=== PATIENT | male | born 1945 | race Caucasian/White ===

== ENCOUNTER 2019-07-01 10:03 | Inpatient (IN) ==
--- NOTE | 2019-07-01 10:37 | EKG Report ---
Test Performed on : 07/01/2019 10:24:53 AM Test Reason : palpi Blood Pressure : / mmHG Vent. Rate : 084 BPM Atrial Rate : 084 BPM P-R Int : 142 ms QRS Dur : 102 ms QT Int : 398 ms P-R-T Axes : 028 -09 019 degrees QTc Int : 470 ms Normal sinus rhythm. Possible Left atrial enlargement Borderline ECG When compared with ECG of 14-JAN-2019 09:42, Previous ECG has undetermined rhythm, needs review Unconfirmed Result
[2019-07-01 10:43] LABS: BASO% 0.4 % (0.0-0.8); EOS% 1.5 % (0.0-10.0); HEMATOCRIT 45.1 % (42.0-52.0); HEMOGLOBIN 15.6 g/dL (14.0-18.0); IMM GRAN% 0.2 % (0.0-0.5); LYMPH# 1.65 X1000 (1.2-3.4); LYMPH% 19.4 % (20.5-51.1); MCH 29.7 PG (27-31); MCHC 34.6 g/dL (33-37); MCV 85.9 FL (81-99); MONO% 8.9 % (1.7-9.3); MPV 9.6 FL (7.4-10.4); NEUT# 5.93 X1000 (1.4-6.5); NEUT% 69.6 % (42.2-75.2); PLT 249 X1000 (130-400); RBC 5.25 XMIL (4.7-6.1); RDW 13.7 % (11.5-14.5); WBC 8.52 X1000 (4.8-10.8)
[2019-07-01 10:44] LABS: BASO# 0.03 X1000 (0.0-0.2); EOS# 0.13 X1000 (0.0-0.7); IMM GRAN# 0.02 X1000 (0.0-0.04); MONO# 0.76 X1000 (0.11-0.59)
--- NOTE | 2019-07-01 10:50 | Diag Imaging Result Doc PS360 ---
EXAM: CHEST-2 VIEWS HISTORY: SOB TECHNIQUE: Chest two views COMPARISON: 01/14/2019 FINDINGS: Interval development of a small to moderate-sized right pleural effusion. There is underlying atelectasis and there may be pneumonia as well. No cardiomegaly. No pulmonary edema. The left lung is well expanded and clear. IMPRESSION: Right pleural effusion and atelectasis and possibly underlying pneumonia. Electronically signed by Heriberto Rico 07/01/2019 10:47 AM
[2019-07-01 11:14] LABS: AGAP 14; ALB/GLOB RATIO 1.1; ALBUMIN 3.7 g/dL (3.5-5.0); ALKALINE PHOSPHATASE 95 U/L (32-122); BUN 18 mg/dL (8-22); CALCIUM 9.1 mg/dL (8.8-10.2); CHLORIDE 103 mmol/L (98-107); COSMO 281; CREATININE 0.9 mg/dL (0.7-1.2); ESTIMATED GFR > 60; GLUCOSE 134 mg/dL (70-104); GOT 16 U/L (10-34); GPT 9 U/L (10-44); POTASSIUM 3.4 mmol/L (3.5-5.1); SODIUM 139 mmol/L (136-145); TCO2 22 mmol/L (25-35); TOTAL BILIRUBIN 0.86 mg/dL (0.20-1.00); TOTAL PROTEIN 7.1 g/dL (6.3-8.3)
--- NOTE | 2019-07-01 12:15 | PROVIDER DOCUMENTATION ---
This chart was entered by Jacquie Nash Scribe, acting as scribe for Prince Benito MD. HPI-Cardiac General - General Chief Complaint: Palpitations Stated Complaint: A FIB Time Seen by Provider: 07/01/19 10:18 Source: patient Allergies/Adverse Reactions: Patient Allergies Allergy/AdvReac Type Severity Reaction Status Date / Time No Known Allergies Allergy Verified 06/09/15 01:53 Home Medications: Home Medication List Medication Instructions Recorded Confirmed Last Taken Type Amphetamine Salts [Adderall] 20 mg PO BID 06/09/15 07/01/19 07/01/19 History Apixaban [Eliquis] 5 mg PO BID 06/09/15 07/01/19 07/01/19 History Diltiazem HCl 120 mg PO DAILY 06/09/15 07/01/19 06/08/15 08:00 History Glucosamine/D3/Boswellia Analia 2 tab PO DAILY 06/09/15 07/01/19 06/08/15 08:00 History [Osteo Bi-Flex Caplet] Meclizine HCl [Antivert] 25 mg PO Q8H PRN PRN #30 tablet 06/09/15 07/01/19 Unknown Rx Meloxicam 7.5 mg PO DAILY 06/09/15 07/01/19 06/08/15 History Tadalafil [Cialis] 5 mg PO DAILY 06/09/15 07/01/19 06/08/15 History Tamsulosin [Flomax] 0.4 mg PO EVERY OTHER DAY 06/09/15 07/01/19 06/08/15 08:00 History Vitamin B Complex Vit C No.4 150 mg PO DAILY 06/09/15 07/01/19 06/08/15 08:00 History [Super B Complex] Meclizine [Antivert] 25 mg PO 3-4XDAY PRN PRN #30 tab 01/14/19 07/01/19 Unknown Rx Cephalexin [Keflex] 500 mg PO BID #10 cap 04/12/19 07/01/19 Unknown Rx - History of Present Illness-Cardiac Nature of Presenting Problem: 74yom presents to ED cc palpitations, SOB and wheezing since Monday that increases with activity. Pt reports he was seen by Dr. Quiros/PCP this morning and the Xray he took showed fluid on 1 lung so he sent pt to ED for further evaluation. Pt reports he sleeps on 2 pillows due to sleep apnea and narcoleptic sleep disorder. Pt denies N/V/D/F. Pt is on Eliquis and has hx of AFIB and HTN. Pt reports he is followed by Dr. Francois Stubbs/[employer] Super[employer]. Pt is nontoxic and no acute distress upon exam. Quality of Pain: reports: none Severity in ED: mild Onset/Duration: 4 days ago Timing: still present Context/Activities at Onset: reports: light activity Modifying Factors: worse with: other (activity) Palpitation Quality: irregular History of arrythmia: reports: A-Fib Associated Symptoms: reports: shortness of breath Similar Symptoms Previously?: Yes Recently Seen Here or By Another Healthcare Provider: Yes (was seen by Dr. Quiros/PCP this morning) Review of Systems - Adult - REVIEW OF SYSTEMS - ADULT Constitutional: reports: see HPI. denies: chills, fever, fatique Eyes: reports: no symptoms reported Ears, Nose, Mouth & Throat: reports: no symptoms reported Cardiovascular: reports: see HPI, palpitations. denies: chest pain Respiratory: reports: see HPI, shortness of breath, wheezing. denies: cough Gastrointestinal: reports: see HPI. denies: diarrhea, nausea, vomiting Genitourinary: reports: no symptoms reported Musculoskeletal: reports: no symptoms reported Integumentary: reports: no symptoms reported Neurological: reports: no symptoms reported Psychiatric: reports: no symptoms reported Endocrine: reports: no symptoms reported Hematologic/Lymphatic: reports: no symptoms reported Allergic/Immunologic: reports: no symptoms reported All Other Systems: Reviewed and Negative Past History - Adult - PAST MEDICAL HISTORY-ADULT Review of Records: reports: Nursing Assessment Review, Medications Reviewed, Social history reviewed & non-contributory. Major Childhood Illnesses: reports: denies history Cardiovascular: reports: A-Fib, HTN Respiratory: reports: denies history Gastrointestinal: reports: denies history Obstetrical/Gynecological: reports: denies history Genitourinary: reports: denies history Musculoskeletal: reports: denies history Neurological: reports: denies history Endocrine/Immune: reports: denies history Other Conditions: reports: denies history - PRIOR SURGERIES/PROCEDURES Surgical/Procedure History: reports: none - IMMUNIZATION STATUS Childhood Immunizations: See Nurse Assessment Flu Vaccine: See Nurse Assessment - FAMILY HISTORY Family History: reviewed, not pertinent - SOCIAL HISTORY Smoking: denies Physical Exam-General - PHYSICAL EXAM-ADULT Initial Vital Signs Reviewed: Yes - CONSTITUTIONAL General Appearance: appears well, alert, no apparent distress. negative: anxious, combative - EYES Eyes: PERRL/EOMI, pink conjunctivae. negative: photophobia - HEAD, EARS, NOSE, MOUTH & THROAT HENMT: normocephalic/atraumatic, moist mucous membranes. negative: angioedema - NECK Neck: non-tender, full range of motion, supple - RESPIRATORY Respiratory: chest non-tender, lungs clear, normal breath sounds. negative: wheezing - CARDIOVASCULAR Cardiovascular: normal peripheral pulses, regular rate, rhythm, no edema. negative: bradycardia, tachycardia - MUSCULOSKELETAL Extremity: normal inspection. negative: deformity - SKIN Integumentary: normal color. negative: ecchymosis, jaundice - PSYCHIATRIC Psych/Mental Status: normal mood/affect, oriented x 3. negative: anxious, disheveled Progress - PLAN OF CARE/RESULTS Progress/Plan/Lab Results: Vital Signs - 8 hr 07/01/19 10:06 Temperature 97.3 F L Pulse Rate 110 H Respiratory Rate 16 Blood Pressure 101/65 O2 Sat by Pulse Oximetry 97 Laboratory Results - last 24 hr 07/01/19 07/01/19 07/01/19 10:33 10:33 10:33 WBC 8.52 RBC 5.25 Hgb 15.6 Hct 45.1 MCV 85.9 MCH 29.7 MCHC 34.6 RDW Std Deviation 13.7 Plt Count 249 MPV 9.6 Immature Gran % (Auto) 0.2 Neut % (Auto) 69.6 Lymph % (Auto) 19.4 L Patrick % (Auto) 8.9 Eos % (Auto) 1.5 Baso % (Auto) 0.4 Immature Gran # (Auto) 0.02 Neut # (Auto) 5.93 Lymph # (Auto) 1.65 Patrick # (Auto) 0.76 H Eos # (Auto) 0.13 Baso # (Auto) 0.03 Sodium 139 Potassium 3.4 L Chloride 103 Carbon Dioxide 22 L Anion Gap 14 BUN 18 Creatinine 0.9 Estimated GFR/1.73 m2 > 60 BUN/Creatinine Ratio 20 Glucose 134 H Calculated Osmolality 281 Calcium 9.1 Total Bilirubin 0.86 AST 16 ALT 9 L Alkaline Phosphatase 95 Mrw-Z-Oddldolwvma Pept 665 H Total Protein 7.1 Albumin 3.7 Globulin 3.4 Albumin/Globulin Ratio 1.1 Orders Category Date Time Status CHEST-2 VIEWS [RAD] Stat Exams 07/01/19 10:27 Completed CBC WITH DIFF [HEME] Stat Lab 07/01/19 10:33 Completed COMPREHENSIVE METABOLIC PANEL [CHEM] Stat Lab 07/01/19 10:33 Completed PRO B-NATRIURETIC PEPTIDE Stat Lab 07/01/19 10:33 Completed EKG [EKG] Stat Ther 07/01/19 10:27 Draft Transfer/Admit Order [TRANSFER] Routine Transfer 07/01/19 12:04 Ordered Result Diagrams: 07/01/19 10:33 07/01/19 10:33 - EKG 1 Time of EKG reading by physician:: 10:24 EKG Read and Signed by:: Prince Benito EKG Interpretation (*Must complete 3 of following elements*): Abnormal (possible left atrial enlargement) Rate: 84 Rhythm: nsr CO Interval: normal ST Wave: normal - XRAY 1 XRAY: Bilateral XRAY Study: Chest Impression: See EMR Report (IMPRESSION: Right pleural effusion and atelectasis and possibly underlying pneumonia. Electronically signed by Heriberto Rico 07/01/2019 10:47 AM) - CONSULTS/PCP/HOSPITALIST Notification #1 *Consult/PCP/Hospitalist*: Dr. Burt Time Discussed: 11:52 Consult Disposition: Admit (accepted pt) Departure - Departure Date of Disposition Decision: 07/01/19 Time of Disposition Decision: 11:52 DIAGNOSIS: Pleural effusion, right, Atrial fib/flutter, transient Disposition: ADMITTED INPATIENT 09 Certified Medical Emergency: Emergent Condition: Stable Additional Freetext Instructions: ED Follow Up Instructions: You have been treated by a care provider in the Emergency Department. These instructions are being provided to you so you can have an understanding of how to care for yourself upon discharge. Upon discharge from the Emergency Department, you are responsible for making arrangements for follow-up care by a physician of your choice. Take all prescribed medications as directed. Return to the Emergency Department immediately for any new or worsening sym ptoms. You may call the Physician Referral phone number at [phone] to obtain a list of Physicians who are taking new patients. Referrals and Follow-Ups: Martine Quiros MD [Primary Care Provider] - - Critical Care Note This patient required my direct & personal management of CC.: No Attestation - Physician/ TOBY Attestation Patient care was provided by Advanced Practice Provider:: No The physician spent face to face time with patient:: Yes Advanced Practice Provider documentation review:: Supervising physician onsite and consulted in the evaluation and care of this patient. The physician did have a face to face encounter with the patient. This chart was documented by the indicated scribe, (Jacquie Nash Scribe) and accurately reflects the services I performed and decisions made by me, Prince Benito MD, as attested by the provider's signature.
[2019-07-01] MEDS ORDERED: ANTIVERT PO PRN (13:40)
[2019-07-01] MEDS ORDERED: ZOFRAN IV PRN (13:40)
[2019-07-01] MEDS ORDERED: TYLENOL PO PRN (13:40)
--- NOTE | 2019-07-01 14:05 | HISTORY AND PHYSICAL ---
PRIMARY CARE PHYSICIAN: Dr. Martine Quiros. FORESTRY TECHNICAL OFFICER: Dr. Francois Stubbs. CHIEF COMPLAINT: Palpitations, shortness of breath and wheezing. HISTORY OF PRESENTING ILLNESS: This is a 74-year-old male who presents to [facility] after he was seen by his primary care physician this morning, and while there, they took a chest x-ray that showed some fluid on his lungs, so they sent him to the emergency room for evaluation. The patient states that he has been having shortness of breath and wheezing since Monday that worsens with activity. He has also noted some palpitations and has a history of atrial fibrillation. He states that he does have 2 pillow orthopnea due to his sleep apnea and narcoleptic sleep disorder. His workup showed a chest x-ray with a right pleural effusion and atelectasis and possibly underlying pneumonia. Laboratory data was fairly unremarkable. His heart rate was 110 when he arrived. We did an EKG that showed normal sinus rhythm at 84. So, he will be admitted for further evaluation and treatment. PAST MEDICAL HISTORY: Atrial fibrillation, hypertension, and obstructive sleep apnea. PAST SURGICAL HISTORY: Back surgery x3, appendectomy and hemorrhoidectomy. FAMILY HISTORY: Reviewed and noncontributory. SOCIAL HISTORY: He currently lives with family. He is a former smoker. Denies any alcohol or illicit drug use. ALLERGIES: He has no known drug allergies. HOME MEDICATIONS: We will hold his Adderall 20 mg p.o. b.i.d., continue his Eliquis 5 mg p.o. b.i.d., diltiazem 120 mg p.o. daily, Osteo Bi-Flex 2 tablets p.o. daily, meclizine 25 mg p.o. q.8 hours p.r.n., meloxicam 7.5 mg p.o. daily. We will hold Cialis 5 mg p.o. daily, Flomax 0.4 mg p.o. every other day, and vitamin B complex 150 mg p.o. daily. LABORATORY DATA: Showed a white blood cell count of 8.52, hemoglobin 15.6, hematocrit 45.1, platelets 249,000. Sodium 139, potassium 3.4, chloride 103, CO2 22, BUN of 18, creatinine 0.9, glucose 134. ProBNP of 665. Chest x-ray showed a right pleural effusion and atelectasis and possibly underlying pneumonia. EKG showed normal sinus rhythm at 84. REVIEW OF SYSTEMS: He denied any fever, chills, blurred vision, dizziness. He had some palpitations but denied chest pain. He had shortness of breath and wheezing. Denied any abdominal pain, constipation, diarrhea, burning or hurting with urination. PHYSICAL EXAMINATION: VITAL SIGNS: On arrival, he had a temperature of 97.3 degrees, pulse 110, respirations 16, blood pressure 101/65, saturating 97% on room air. GENERAL: This is a 74-year-old male who is lying in the bed and answers questions appropriately. HEENT: Normocephalic, atraumatic. Normal ENT inspection. Oropharynx and nares are clear. EYES: Pupils are equal, round, and reactive to light and accommodation. Extraocular movements are intact. NECK: Normal inspection normal range of motion. LUNGS: With some decreased breath sounds to the bilateral bases. Equal lung expansion. Chest wall movement noted. HEART: Regular rate and rhythm. No murmurs, rubs, or gallops. ABDOMEN: Soft, nontender, nondistended. Bowel sounds are present x4 quadrants. MUSCULOSKELETAL: He has 5/5 strength x4 extremities. NEUROLOGICAL: The cranial nerves 2-12 appear grossly intact. ASSESSMENT: 1. Right pleural effusion. 2. Possible right pneumonia. 3. Hypertension. 4. Palpitations with history of atrial fibrillation on current anticoagulation. PLAN: He will be admitted to the medical unit, placed on telemetry, O2 per protocol, healthy heart diet. We will check an echocardiogram. Place him on Lasix 40 mg IV q.12, continue home medications as previously identified. Place him on potassium 40 mEq p.o. daily and will recheck a CBC and BMP in the a.m. Further orders after seen by attending. Dictated by CHIQUIS Carroll for Gurmeet Burt MD cc: MD Jil Gonzalez CRNP Raphael K. Quansah, MD
[2019-07-01] MEDS: LASIX IV SCH (16:04)
--- NOTE | 2019-07-01 17:39 | HISTORY AND PHYSICAL ---
ADDENDUM REPORT: This morning I have seen and examined Mr. Rogers. The and the son were at the bedside at the time of the encounter. Mr. Rogers comes in because of progressively worsening shortness of breath for the past week or so. He went to see his PCP and was found to have elevated pulse, so he was advised to come to the emergency room where he was found to have a heart rate of about 113, 110. Occasionally it becomes very atrial fibrillation and then it turns back to sinus. PHYSICAL EXAMINATION: VITAL SIGNS: Blood pressure is 131/66, pulse is 83, respirations 20, temperature 97.4 degrees. NECK: Supple. I did not see any JVD. CHEST: Air entry was bilaterally reduced, more so to the right posterior lung. There is some dullness to percussion. CARDIOVASCULAR: Regular. No murmurs. ABDOMEN: Soft. EXTREMITIES: No pedal edema. CENTRAL NERVOUS SYSTEM: Patient is awake, alert, and oriented. LABORATORY DATA: Has also been reviewed. The patient's proB is up to 665; a baseline in January was just 378. A chest x-ray this morning seems to suggest a right pleural effusion and atelectasis, possible underlying pneumonia. ASSESSMENT AND PLAN: 1. Dyspnea on exertion on presentation, presumably related to right lower lobe consolidation concerning for pneumonia versus mass. There seems also to be some fluid there. X-ray was not extremely detailed enough. We are going to get a CT scan to have a better image of what we are looking at. 2. Possible congestive heart failure with preserved ejection fraction. 3. History of obstructive sleep apnea. 4. Paroxysmal atrial fibrillation, currently rate and rhythm controlled. Please refer to the details of the History and Physical, which has been dictated by the nurse practitioner in the chart. cc: Gurmeet Burt MD MTDD
[2019-07-01 17:59] LABS: INR 1.39; PROTIME 17.3 Seconds (11.0-16.0)
[2019-07-01 18:00] LABS: PTT 40.8 Seconds (22.3-41.8)
--- NOTE | 2019-07-01 19:37 | CARDIOLOGY CONSULTATION ---
DATE: 07/01/2019 CONSULTATION REQUESTED BY: Hospitalist service. REASON: Possible CHF. HISTORY: Mr. Rogers is a 71-year-old male who was in his usual state of health until just few days ago when he started having a discomfort on the substernal area of the chest when turning on his left side at night, and getting better when turning on his right side. He also noted increasing dyspnea. This was unusual. The patient tells me that he just got about 4 days ago, on 06/28/2019. The patient had been doing well. He just went to the ER today after seeing his primary doctor, and the chest x-ray shows right pleural effusion, atelectasis, possibly underlying pneumonia. There is no cardiomegaly. There is no pulmonary edema. A proBNP level is only minimally elevated at 665 g/mL. Normal or upper normal is 450. BUN and creatinine are normal. His EKG done in the ER is normal. His telemetry right now is normal. The patient has been admitted for further evaluation. PAST HISTORY: Positive for paroxysmal atrial fibrillation. He has been diagnosed with hypertension. He also has some obstructive sleep apnea. SURGICAL HISTORY: Previous appendectomy, hemorrhoidectomy. He has had back surgery. FAMILY HISTORY: Several siblings of cancer. One brother of heart disease. Mother young. He is the youngest of 10 children. SOCIAL HISTORY: He retired from [employer] after working 34 years. He retired in 1999. He has been twice before. He just got 4 days ago. He has 3 children from his first and 1 from the second . He quit smoking 40 years ago. Not a drinker. ALLERGIES: He is not allergic to any drug or substance that he is aware of. HOME MEDICATIONS: Include: 1. Amphetamine. 2. Adderall 20 mg twice a day. 3. Apixaban 5 mg twice a day. 4. Keflex 500 twice a day. 5. Diltiazem 120 daily. 6. Glucosamine 2 tablets daily. 7. Meclizine 25 every 8 hours. 8. Meloxicam 7.5 daily. 9. Cialis 5 mg daily. 10. Flomax 0.4 mg every other day. 11. Vitamin B complex 150 daily. REVIEW OF SYSTEMS: Up until the onset of symptoms, he was doing fine. Multiple systems were checked. They were negative, including GI, , skeletal, muscular, hearing, vision, skin, immunological, hematological, pulmonary, cardiac, etc. PHYSICAL EXAMINATION: Vital Signs: Blood pressure 131/66, temperature 97.4 degrees, pulse 83, respirations 20. General: The patient is awake, alert, oriented, in no distress. HEENT: Unremarkable. I do not see jugular venous distention. Chest: Diminished breath sounds in the right base with dullness to percussion. Heart: Sounds are regular and rhythmic. I do not hear a gallop or murmur. Abdomen: Nontender, soft. No masses, no hepatomegaly. Extremities: Good pulses. No peripheral edema. Neurological: Nonfocal. Moves 4 extremities. IMPRESSION: 1. Patient who presents with increasing dyspnea, abnormal chest x-ray, suggesting atelectasis and effusion. 2. History of paroxysmal atrial fibrillation. 3. Former smoker. 4. Strong family history of cancer. 5. History of hypertension. 6. History of obstructive sleep apnea. RECOMMENDATIONS: At this time, I think we need to do a CT of the chest with contrast, looking for a mass. I strongly suspect this patient may have cancer. We will get a CEA, C- reactive protein, and sedimentation rate. I will review the echocardiogram that was done earlier on today. We may want to consult Pulmonary for bronchoscopy or possibly pleural biopsy. His presentation and the preliminary laboratory studies do not support Congestive heart failure as the chief underlying problem. Further advice will be forthcoming. Thank you for asking us to participate in his evaluation. cc: MD JULIETA Calvo
[2019-07-01] MEDS: ELIQUIS PO SCH (20:43)
[2019-07-01] MEDS ORDERED: FLOMAX PO SCH (21:00)
[2019-07-01] MEDS: FLOMAX PO SCH (21:17)
[2019-07-02] MEDS: LASIX IV SCH ×2 (03:47→09:43)
[2019-07-02] MEDS ORDERED: VANCOMYCIN IV PER PHARMACY MISC SCH (06:00)
[2019-07-02] MEDS: MAXIPIME 1 GM in NS 50 ML IV SCH ×2 (06:17→19:44)
[2019-07-02 06:47] LABS: BASO# 0.03 X1000 (0.0-0.2); BASO% 0.4 % (0.0-0.8); EOS# 0.16 X1000 (0.0-0.7); EOS% 1.9 % (0.0-10.0); HEMATOCRIT 44.8 % (42.0-52.0); HEMOGLOBIN 15.1 g/dL (14.0-18.0); IMM GRAN# 0.02 X1000 (0.0-0.04); IMM GRAN% 0.2 % (0.0-0.5); LYMPH# 1.63 X1000 (1.2-3.4); LYMPH% 19.5 % (20.5-51.1); MCH 29.2 PG (27-31); MCHC 33.7 g/dL (33-37); MCV 86.7 FL (81-99); MONO# 0.73 X1000 (0.11-0.59); MONO% 8.7 % (1.7-9.3); MPV 9.8 FL (7.4-10.4); NEUT# 5.78 X1000 (1.4-6.5); NEUT% 69.3 % (42.2-75.2); PLT 238 X1000 (130-400); RBC 5.17 XMIL (4.7-6.1); RDW 13.8 % (11.5-14.5); WBC 8.35 X1000 (4.8-10.8)
--- NOTE | 2019-07-02 07:23 | Diag Imaging Result Doc PS360 ---
EXAM: CT THORAX W/CONTRAST 07/01/2019 HISTORY: right lung base fluid ? mass TECHNIQUE: This exam was performed using automated exposure control, adjustment of mA or kV according to patient size, and/or use of iterative reconstruction technique. COMMENT: There is a large pleural effusion on the right. This was not present on 11/11/2015. Some of the fluid may be loculated. There is no fluid on the left side. No significant pericardial fluid is present. There is a enlarged aorticopulmonary window node measuring over 2 cm in long axis. There is also some apparent right hilar adenopathy. There is a calcified node in the subcarina and some calcified right hilar nodes. There are no significant abnormalities in the left lung. There is apical pleural fibrosis bilaterally and considerable compressive atelectasis in the right lower lobe and middle lobe. There is a area of relative nodularity near the hilum in the atelectatic portion of the right lower lobe. The possibility of an underlying mass cannot be excluded. There is a rounded pleural-based nodule in the lateral right middle lobe measuring 17 mm in diameter. This was not present previously. There are some pleural calcifications bilaterally. There is no evidence of acute bony abnormality. IMPRESSION: Large right pleural effusion. Compressive atelectasis. Nodular pulmonary opacity in the lateral right middle lobe and questionable right lower lobe mass of uncertain significance. The possibility of malignancy cannot be excluded and further evaluation is recommended. Electronically signed by Ihsan Caballero 07/02/2019 7:21 AM
[2019-07-02 07:25] LABS: AGAP 13; BUN 16 mg/dL (8-22); CALCIUM 9.3 mg/dL (8.8-10.2); CHLORIDE 99 mmol/L (98-107); COSMO 276; CREATININE 0.9 mg/dL (0.7-1.2); ESTIMATED GFR > 60; GLUCOSE 109 mg/dL (70-104); SODIUM 137 mmol/L (136-145); TCO2 25 mmol/L (25-35)
[2019-07-02] MEDS ORDERED: VANCOMYCIN 2,500 MG in NS 500 ML IV ONE (08:00)
--- NOTE | 2019-07-02 08:40 | PROVIDER PROGRESS NOTE ---
Progress Note Additional Pulmonary Note: We will likely consider repeat imaging after thoracentesis, Which in turn to be scheduled on 07/04 (Sarita held).
[2019-07-02] MEDS ORDERED: MOBIC PO SCH (09:00)
[2019-07-02] MEDS ORDERED: KLOR-CON PO SCH (09:00)
[2019-07-02] MEDS: CARDIZEM CD PO SCH (09:43)
[2019-07-02] MEDS: VICON-C PO SCH (09:43)
[2019-07-02] MEDS: GLUCOSAMINE 500 MG/CHONDROITIN 400 MG PO SCH (09:43)
--- NOTE | 2019-07-02 10:28 | PROGRESS NOTE ---
DATE: 07/02/2019 INTERVAL HISTORY: No acute events overnight. He became sinus rhythm. He denies any chest pain. His shortness of breath is at baseline. He states he has been having some shortness of breath and dry cough for almost a week to 10 days. We discussed about CT scan finding. We discussed about possibility of pneumonia versus lung cancer versus other etiologies. His is at bedside. VITAL SIGNS: Temperature 97.8 degrees, pulse 78, respiratory rate 18, blood pressure 105/65, saturating 97% on room air. PHYSICAL EXAMINATION: General: Does not appear in acute distress. Oral cavity is moist. He had decreased air entry with inspiratory crackles and egophony on the right infrascapular region. Adequate air entry without wheeze, rhonchi, crackles on left hemithorax. S1, S2 normal. Regular. No murmur, rub, or gallop. Abdomen: Soft, nontender. No lower extremity edema. He is alert and oriented x3. LABS: Suggestive of no leukocytosis, normal hemoglobin. Hypokalemia which I am repleting. Microbiology is unremarkable. CT scan of the chest yesterday had detected large right pleural effusion, compressive atelectasis, nodular pulmonary opacity in the lateral right middle lobe and questionable right lower lobe mass of uncertain significance. ASSESSMENT AND PLAN: 1. Right pleural effusion. Differential includes parapneumonic effusion versus malignant pleural effusion versus other. He denies known history of coronary artery disease or congestive heart failure. His last dose of Eliquis was 07/01/2019 around 8 p.m. Ultrasound thoracentesis is ordered and I will await pleural fluid studies. Meanwhile, continue intravenous antibiotics. Follow up formal echocardiogram report. Continue intravenous Lasix as well. Pulmonology on board for further workup in the future. 2. Atrial fibrillation with rapid ventricular rate with paroxysmal atrial fibrillation. Continue home diltiazem. Hold home Eliquis. 3. Others. Continue tamsulosin for BPH; meclizine for chronic dizziness and vertigo. DISPOSITION: Awaiting ultrasound thoracenteses, likely to be done on 07/02/2019 late evening versus July 03. Appreciate Radiology recommendation and pleural fluid analysis. Plan of care discussed with the patient and his at bedside. Noticeably, patient does have history of about 15 to 20 pack year smoking history. cc: Jorge Khan MD
[2019-07-02] MEDS: POTASSIUM CHLORIDE 20 MEQ/SWI 20 MEQ/100 ML IVPB IV SCH ×2 (13:07→16:05)
--- NOTE | 2019-07-02 17:25 | ECHO REPORT ---
ORDER DATE: 07/01/2019 INTERPRETING PHYSICIAN: Dr. Burden CLINICAL INDICATIONS: Right pleural effusion, paroxysmal atrial fibrillation, question of CHF. M-MODE MEASUREMENTS: Left ventricle end diastole: 4.7 cm. Left ventricle end systole: 3.3 cm. Posterior wall: 0.9 cm. Interventricular septum: 0.9 cm. Left atrium: 4.2 cm. Aortic root: 3.6 cm. SUMMARY OF 2-DIMENSIONAL IMAGIN. The left ventricular function is normal. Ejection fraction is estimated at 57%. There is no wall motion abnormality. 2. The aortic valve has three cusps. Color flow mapping indicates a mild degree of regurgitation. 3. Mitral valve looks normal. Color flow mapping unremarkable. 4. Pulsed wave Doppler of mitral inflow is normal. 5. Tissue Doppler of septal and lateral mitral annulus averages 6 cm. 6. There is no diastolic dysfunction. 7. There is mild to moderate degree of tricuspid regurgitation with pulmonary pressure estimated at 25 mmHg. The pulmonic valve is normal. Color flow mapping unremarkable. 8. There is no pericardial effusion, mass, and no thrombus. 9. Right-sided chambers are normal. CONCLUSIONS: In summary, this echocardiographic study is quite unremarkable. It shows: 1. Normal left ventricular systolic function. 2. Mild degree of aortic regurgitation. 3. Mild to moderate tricuspid regurgitation with pulmonary pressure of 25 mmHg. 4. Normal diastolic function. Clinical correlation is recommended. cc: MD Jil Calvo CRNP
[2019-07-02] MEDS ORDERED: FLOMAX PO SCH (21:00)
--- NOTE | 2019-07-02 21:11 | CONSULTATION ---
DATE OF CONSULTATION: 07/02/2019 REQUESTING PROVIDER: Dr. Gurmeet Burt. REASON FOR CONSULTATION: Large right-sided pleural effusion with atelectasis. HISTORY OF PRESENT ILLNESS: This is a 74-year-old, male, with medical history of atrial fibrillation, hypertension, obstructive sleep apnea, narcoleptic sleep disorder and arthritis. He apparently went to see his primary care physician, Dr. Quiros, yesterday morning, and a chest x-ray in the office showed right-sided pleural effusion, so he was sent to the ER for further evaluation. He was put on antibiotics including cefepime and vancomycin, and Lasix since admission. The patient currently is lying in bed with no acute distress. He is on room air. The patient's is at the bedside. The patient reported he had some palpitations and shortness of breath which are worse with activities, and audible wheezing before admission, but he has no cough. No fever, chills, chest pain, diarrhea, constipation, nausea, vomiting, urination discomfort, or noticeable recent weight change. He reported he has had some chronic nasal congestion for over 2 years, and postnasal drip, and because of nasal congestion, he cannot tolerate CPAP as he used to. So, he has not been on any CPAP at bedtime for about 2 years. He sleeps on 2 pillows and he usually sleeps to his sides. He reported that although he is not using the CPAP machine, but he generally sleeps pretty good. His reported he has really loud snoring when he sleeps with some witnessed apnea at times. He reports no pedal edema. PAST MEDICAL/SURGICAL HISTORY: 1. Atrial fibrillation. Follow up outpatient by Dr. Stubbs. 2. Hypertension. 3. Obstructive sleep apnea. The patient has not used his CPAP for over 2 years, because of his nasal congestion which is not relieved by Flonax. 4. Narcoleptic sleep disorder. 5. Arthritis. 6. Status post back surgery x3. 7. Appendectomy. 8. hemorrhoidectomy. SOCIAL HISTORY: Patient lives at home with his . He is a former smoker with about 15-20 pack years of smoking history and he quit over 40 years ago. He has no history of alcohol or illicit drug use. He has no pets at home. FAMILY HISTORY: Significant for cancer. ALLERGIES: No known drug allergies. REVIEW OF SYSTEMS: A 10-point review of systems was conducted and the pertinent is listed within the HPI. Otherwise noncontributory. PHYSICAL EXAMINATION: Vital Signs: Temperature 97.8 degrees, blood pressure 105/65, pulse 73, respiratory rate 18, oxygen saturation 97% on room air. General: Lying in bed with no acute distress noted. HEENT: Atraumatic, normocephalic. Trachea midline. Mucosa pink and moist. No nasal polyps noted. Respiratory: Even and unlabored, symmetrical excursion. Auscultation revealed diminished breathing sounds in the right side of the lung with early inspiratory crackles in the right middle lung zone and left lower lung zone. Cardiovascular: Regular rate and rhythm. Gastrointestinal: Soft, nondistended, nontender. Bowel sounds normoactive in all 4 quadrants. Extremities: No pedal edema. No cyanosis. No clubbing. Dorsalis pedis 1+ bilaterally. Neurologic: Alert and oriented x3. Speech fluent. Follows commands. LABORATORY DATA: White blood cell 8.35, hemoglobin 15.1, hematocrit 44.8, platelet 239,000. Sodium 137, potassium 3.0, chloride 99, carbon dioxide 25, BUN 16, creatinine 0.9, glucose 109. IMAGING DATA: CT of thorax with contrast on 07/01/2019, revealed a large right pleural effusion, compressive atelectasis, nodular pulmonary opacity in the lateral right middle lobe, and questionable right lower lobe mass of uncertain significance. ASSESSMENT: This is a 74-year-old, male, with a medical history of atrial fibrillation, hypertension, obstructive sleep apnea, narcoleptic sleep disorder, and arthritis. He has been admitted to the medical floor since yesterday, with large right-sided large right pleural effusion and possible right pneumonia. 1. Large right pleural effusion with compressive atelectasis. 2. Right middle lobe rounded, pleural-based nodule measuring 17 mm in diameter, and questionable right lower lobe mass. 3. Possible right pneumonia PLAN: 1. The patient is on Eliquis for atrial fibrillation. His last dosage was given on 07/01/2019 at 2042, and has been held since then. Currently, we are planning ultrasound thoracentesis on 07/04/2019, morning. I explained the reasoning of pending thoracentesis to patient and his . They both show understanding and agree with our plan. 2. Continue antibiotic and diuretics. 3. Consider repeat imaging after thoracentesis and antibiotic therapy; decide from there to pursue any further procedure, such as bronchoscopy or scan, such as outpatient PET scan or not. 4. Follow up with procalcitonin and pleural fluid profile. 5. Further recommendations pending hospital course. Thank you for the courtesy of this consult. Dictated by CHIQUIS Ramirez for Vernon Sevilla MD cc: CHIQUIS Ramirez MD [facility]
[2019-07-03] MEDS: VANCOMYCIN 2,000 MG in NS 500 ML IV SCH ×2 (03:43→21:29)
[2019-07-03] MEDS: MAXIPIME 1 GM in NS 50 ML IV SCH ×2 (05:00→17:05)
[2019-07-03 07:58] LABS: AGAP 13; BUN 18 mg/dL (8-22); CALCIUM 8.7 mg/dL (8.8-10.2); CHLORIDE 106 mmol/L (98-107); COSMO 286; CREATININE 0.7 mg/dL (0.7-1.2); ESTIMATED GFR > 60; GLUCOSE 108 mg/dL (70-104); POTASSIUM 3.4 mmol/L (3.5-5.1); SODIUM 142 mmol/L (136-145); TCO2 23 mmol/L (25-35)
[2019-07-03] MEDS ORDERED: FLOMAX PO SCH (09:00)
[2019-07-03] MEDS: LASIX IV SCH (09:17)
[2019-07-03] MEDS: CARDIZEM CD PO SCH (09:17)
[2019-07-03] MEDS: GLUCOSAMINE 500 MG/CHONDROITIN 400 MG PO SCH (09:17)
[2019-07-03] MEDS: VICON-C PO SCH (09:17)
[2019-07-03] MEDS: KLOR-CON PO SCH ×2 (14:29→17:44)
[2019-07-03] MEDS ORDERED: MAGNESIUM SULFATE 2 GM/S.W.I. 2 GM/50 ML IVPB IV ONE (17:15)
--- NOTE | 2019-07-03 17:55 | PROGRESS NOTE ---
DATE: 07/03/2019 INTERVAL HISTORY: No acute events overnight. His thoracentesis was postponed because he was on Eliquis and it is planned to be done tomorrow. The patient does not appear in any acute distress. He thinks his shortness of breath is better. He was in significant distress when he was admitted though, and especially when he visited his regular doctor, but he is feeling better now. OBJECTIVE: vital signs: Currently, temperature of 98.1 degrees, pulse 100, respiratory rate 20, blood pressure 112/60, saturation is 97% on room air. General: Does not appear in any acute distress. Oral cavity is moist. Air entry bilaterally equal. No wheeze, rhonchi, crackles. S1, S2 normal. No murmur, rub, or gallop. He does have significantly decreased air entry in right infrascapular region with some inspiratory crackles and decreased vocal resonance. Abdomen: Soft, nontender. No lower extremity edema. He is alert and oriented x3. LABORATORY: Suggestive of normal CBC. His BMP has a potassium of 3.4, which is currently being repleted. I will also give him 2 g of magnesium and will have magnesium level drawn tomorrow. ASSESSMENT AND PLAN: 1. Right pleural effusion. Differential includes parapneumonic effusion versus malignant pleural effusion versus other etiologies. His echocardiogram is largely unremarkable. He does not have a history of coronary artery disease. Continue to hold Eliquis, intravenous Lasix, and follow up thoracentesis on July 04. Based on that, Pulmonology team would plan repeat CT scan of his chest and possible need for bronchoscopy. 2. Atrial fibrillation with rapid ventricular rate and paroxysmal nature of it. Continue home diltiazem. Hold Eliquis for now. 3. Hypokalemia, which is currently being repleted. I will give him magnesium. Will follow up with potassium and magnesium tomorrow. This is likely related to intravenous Lasix use. 4. Others. Continue tamsulosin for BPH. Continue intravenous antibiotics for suspected parapneumonic effusion until we get the thoracenteses done. 5. Plan of care discussed with the patient and his questions have been answered. cc: Jorge Khan MD
[2019-07-03] MEDS: FLOMAX PO SCH (21:30)
[2019-07-04] MEDS: MAXIPIME 1 GM in NS 50 ML IV SCH (05:47)
[2019-07-04 07:51] LABS: AGAP 11; BUN 17 mg/dL (8-22); CHLORIDE 108 mmol/L (98-107); COSMO 287; CREATININE 0.9 mg/dL (0.7-1.2); ESTIMATED GFR > 60; GLUCOSE 108 mg/dL (70-104); POTASSIUM 4.2 mmol/L (3.5-5.1); SODIUM 143 mmol/L (136-145); TCO2 24 mmol/L (25-35)
--- NOTE | 2019-07-04 09:44 | Diag Imaging Result Doc PS360 ---
US THORACENTESIS W/IMAGE GUIDE - 07/04/2019 INDICATION: large right pleural effusion TECHNIQUE: The risks and benefits of the procedure were discussed with the patient. All questions were answered. Written and verbal informed consent was obtained. Overlying skin was prepped and draped in sterile fashion. Anesthesia was achieved with injection of 10 cc of 1% lidocaine. COMPARISON: Chest CT 07/01/2019 FINDINGS: The large right pleural effusion was successfully drained. 2 L was removed. There was no hemorrhage or evidence of propagation. However at the end of the procedure, the patient was becoming lightheaded. The report was called to the patient's nurse and the patient was sent back to the floor. IMPRESSION: Successful ultrasound-guided right thoracentesis. No competition from the procedure. However the patient became lightheaded and was returned back to the inpatient unit. Electronically signed by Brant Vallejo 07/04/2019 9:41 AM
--- NOTE | 2019-07-04 10:15 | Diag Imaging Result Doc PS360 ---
CHEST-2 VIEWS - 07/04/2019 INDICATION: post thoracentesis COMPARISON: 07/01/2019 FINDINGS: There is a trace residual right pleural effusion. No pneumothorax. There is decrease in the atelectasis in the right lung base. The left lung remains clear. Heart size remains top normal. IMPRESSION: Significant decrease in the right pleural effusion. No complication from thoracentesis. Electronically signed by Brant Vallejo 07/04/2019 10:12 AM
[2019-07-04 10:23] LABS: BODY FLUID SOURCE PLEURAL FLUID; SPECIMEN PLEURAL FLUID
[2019-07-04] MEDS: GLUCOSAMINE 500 MG/CHONDROITIN 400 MG PO SCH (10:23)
[2019-07-04] MEDS: CARDIZEM CD PO SCH (10:24)
[2019-07-04] MEDS: VICON-C PO SCH (10:24)
[2019-07-04] MEDS: ELIQUIS PO SCH (10:24)
[2019-07-04] MEDS: LASIX IV SCH (10:24)
[2019-07-04 10:42] LABS: GLUCOSE BODY FLUID 94 mg/dL
[2019-07-04 10:43] LABS: AMYLASE BODY FLUID 21 U/L; TOTAL PROT BODY FLUID 4.8 g/dL
[2019-07-04 11:06] LABS: LDH BODY FLUID 202 U/L
[2019-07-04 11:54] LABS: POLYS 8 %; WBC BF 129 /cumm
[2019-07-04 11:55] LABS: MONOS 92 %
[2019-07-04 13:20] LABS: ALBUMIN 3.4 g/dL (3.5-5.0); TOTAL PROTEIN 7.1 g/dL (6.3-8.3)
--- NOTE | 2019-07-04 13:54 | Diag Imaging Result Doc PS360 ---
EXAM: CT THORAX W/O CONTRAST HISTORY: SOB TECHNIQUE: CT chest without contrast COMPARISON: 07/01/2019 FINDINGS: Interval decrease in the right pleural effusion. This now measures only 3.7 cm posteriorly and inferiorly in the midline where as previously it measured over 10 cm. No left-sided effusion. No cardiomegaly. The calcified mediastinal and hilar lymph nodes with scattered granuloma. Lobulated right lower lobe 1.8 x 3.6 cm mass is better seen due to partial reexpansion of the right lower lobe. Tiny nodules laterally in the right lung are unchanged. Limited images through the upper abdomen reveal stones in the gallbladder. IMPRESSION: 1.Interval decrease in the right pleural fluid 2.Right lower lobe mass is easier to see 3.No other interval change. This exam was performed using automated exposure control, adjustment of mA or kV according to patient size, and/or use of iterative reconstruction technique. Electronically signed by Heriberto Rico 07/04/2019 1:51 PM
[2019-07-04] MEDS: VANCOMYCIN 2,000 MG in NS 500 ML IV SCH (17:23)
--- NOTE | 2019-07-04 20:30 | PROGRESS NOTE ---
DATE: 07/04/2019 INTERVAL HISTORY: Mr. Rogers underwent thoracenteses today with 2 L of fluid removal. Unfortunately, immediately after thoracentesis, he received a dose of Eliquis. There was a glitch in the computer system and his hold order on Eliquis got discontinued automatically, and I was not informed about resuming the Eliquis because of that. In any case, he tolerated the thoracentesis well. His post-thoracentesis CT scan detected right-sided lung nodules. The pleural fluid analysis suggests lymphocytic predominance with exudative nature with high protein and LDH. SUBJECTIVE: The patient and his had several questions regarding thoracenteses, possible next plan of action. I answered them to best of my knowledge. They are also awaiting to discuss these questions with the automotive manager before going home. VITALS: Currently, temperature 98.6 degrees, pulse 89, respiratory rate 22, blood pressure 126/66, saturating 98% on room air. OBJECTIVE: General: Does not appear in any acute distress. Oral cavity is moist. Air entry bilaterally equal. No wheeze, rhonchi, crackles. He does have decreased air entry in right infrascapular region. S1, S2 normal. No murmur, rub, gallop. Abdomen: Soft, nontender. No lower extremity edema. LABORATORY: Essentially suggest normal electrolytes. Pleural fluid analysis had WBC of 129, total protein of 4.8, and LDH of 202. Pleural fluid Gram stain had a few white cells, but no bacteria. Final culture is pending. IMAGING: Chest CT post-thoracentesis had interval decrease in right pleural fluid, right lower lobe mass, and no other interval change. ASSESSMENT AND PLAN: 1. Right pleural exudative effusion with lymphocytic predominance with presence of right lung nodules suspicious for malignancy versus other etiologies. The final cytology result is pending. I will appreciate Pulmonology about possible need for bronchoscopy outpatient. 2. Paroxysmal atrial fibrillation. Continue home diltiazem. Continue to hold all anticoagulants for now. 3. His hypokalemia was repleted. 4. I will stop the antibiotics since his procalcitonin was unremarkable. He is now status post almost 4 days of IV antibiotics. Pleural fluid, though has high white blood cells, is lymphocytic. There is no organized consolidation. I will keep him on oral Lasix. 5. Disposition. The patient will be discharged to home after he has seen his automotive manager and have next course of action tomorrow. cc: Jorge Khan MD
[2019-07-04] MEDS: LIDODERM TOP SCH (22:10)
[2019-07-05] MEDS ORDERED: LASIX PO SCH (06:00)
--- NOTE | 2019-07-05 07:03 | Diag Imaging Result Doc PS360 ---
EXAM: CHEST-PORTABLE HISTORY: Follow up right pleural effusion TECHNIQUE: Chest single view COMPARISON: 07/04/2019 FINDINGS: Interval decrease in the size of the right pleural effusion. No pneumothorax. The heart is mildly prominent. Atelectasis and/or infiltrates in the lower right lung. These are less pronounced. IMPRESSION: Mild interval improvement. Electronically signed by Heriberto Rico 07/05/2019 7:02 AM
[2019-07-05 07:40] LABS: AGAP 13; BUN 16 mg/dL (8-22); CALCIUM 8.9 mg/dL (8.8-10.2); CHLORIDE 106 mmol/L (98-107); COSMO 285; CREATININE 0.7 mg/dL (0.7-1.2); ESTIMATED GFR > 60; GLUCOSE 110 mg/dL (70-104); POTASSIUM 3.7 mmol/L (3.5-5.1); SODIUM 142 mmol/L (136-145); TCO2 23 mmol/L (25-35)
[2019-07-05 08:07] VITALS: BP 123/57
--- NOTE | 2019-07-05 09:26 | PROVIDER PROGRESS NOTE ---
Progress Note Pulmonary Additional Note: CT images after thoracentesis were reviewed and the best biopsy approach maybe CT guided biopsy. I called the radiologist to discuss and waiting on a call back. I will discuss with patient and family.
[2019-07-05] MEDS ORDERED: LOVENOX SUBQ SCH (10:00)
[2019-07-05] MEDS: VICON-C PO SCH (10:15)
[2019-07-05] MEDS: CARDIZEM CD PO SCH (10:15)
[2019-07-05] MEDS: LIDODERM TOP SCH (10:16)
[2019-07-05] MEDS: GLUCOSAMINE 500 MG/CHONDROITIN 400 MG PO SCH (10:16)
[2019-07-05] MEDS ORDERED: LEVAQUIN PO SCH (11:30)
--- NOTE | 2019-07-05 19:17 | DISCHARGE SUMMARY ---
ADMISSION DATE: 07/01/2019 DISCHARGE DATE: 07/05/2019 DISCHARGE DISPOSITION: Home with family. DISCHARGE CONDITION: He is hemodynamically stable. He is denying any shortness of breath at rest as well as while walking in the hallway, he denies any chest pain. He is not coughing. The plan is to discharge him on antibiotics, have a repeat CT scan in 10 days to 2 weeks time and depending on that, consider biopsy of lung lesions if they persist despite antibiotics. He is awaiting Dr. Sevilla's encounter. DISCHARGE DIAGNOSES: 1. Right pleural exudative effusion with lymphocytic predominance. 2. Right lung nodules suspicious of malignancy whether versus other etiologies. 3. Hypokalemia. 4. Respiratory distress on presentation OTHER DIAGNOSES: 1. History of paroxysmal atrial fibrillation. 2. History of essential hypertension. 3. History of obstructive sleep apnea. 4. History of benign prostatic hypertrophy. DISCHARGE MEDICATIONS: Amphetamine salts 20 mg b.i.d. , Tadalafil 5 mg daily, diltiazem 120 mg daily, apixaban 5 mg b.i.d., tamsulosin 0.4 mg every other day, meloxicam 7.5 mg daily, Osteo Bi-Flex caplet 2 tablets daily, vitamin B complex 150 mg daily, meclizine 225 mg 3 to 4 times a day as needed for dizziness, furosemide 40 mg daily, 20 tablets have been prescribed, levofloxacin 750 mg daily 5 tablets have been prescribed. He has also been provided with a BMP slip to be done within 5 days and discuss results with regular doctor or lung doctor. VITAL SIGNS: At the time of discharge temperature 97.7 degrees, pulse 67, respiratory rate 20, blood pressure 123/57, he is saturating 98% room air. PHYSICAL EXAMINATION: General: He does not appear in acute distress. HEENT: Oral cavity is moist. Respiratory: No wheeze or rhonchi. He does have significantly decreased air entry with inspiratory crackles on right infrascapular region. Cardiovascular: S1, S2 normal. Regular. No murmur or gallop. Abdomen: Soft, nontender. Extremities: No lower extremity edema. Neurologic: He is alert oriented x3, sitting in the chair. He is able to walk in the hallway. SIGNIFICANT LABS: During hospital admission and discharge, WBC 8.3, hemoglobin 15.1, platelet 238,000. Sodium 142, potassium 3.7, BUN 16, creatinine 0.7. Pleural fluid analysis showed WBC of 129 with 92% lymphocytosis. Glucose of 94. LDH of 202 and total protein of 4.8, which met the Light's criteria. Fungal smear did not show any fungus. Cytology smear report was pending. Pleural fluid did not show any growth. IMAGING: During hospital admission: Chest x-ray on admission had right pleural effusion, atelectasis and possibly underlying pneumonia. Chest CT had large right pleural effusion, compressive atelectasis, nodular pulmonary opacity in the lateral right middle lobe and questionable right lower lobe mass of uncertain significance. The possibility of malignancy could not be excluded. Echocardiogram had suggested normal left ventricular systolic function, mild degree of aortic regurgitation, mild to moderate tricuspid regurgitation. Ejection fraction 57% with normal diastolic function. He underwent thoracenteses on 07/04/2019 with removal of 2 L of clear fluid. Chest CT post thoracentesis in July 04 had interval decrease in the right pleural fluid. Right lower lobe mass was easier to be seen, which was 1.8 x 3.6 cm. Chest x-ray had mild interval improvement on July 05. Electrocardiogram on admission had normal sinus rhythm possible left atrial enlargement. PROCEDURES DURING HOSPITAL ADMISSION: He underwent ultrasound-guided thoracentesis July 04 with removal of 2 L of fluid. HOSPITAL COURSE SUMMARY: Mr. Rogers is 74-year-old man who was seeing his primary care physician for shortness of breath on physical exertion and a chest x-ray was performed which had suggested a large pleural effusion especially affecting right side of his lung, so he was sent to the emergency room for evaluation. He was also short of breath and in respiratory distress on presentation and so the hospitalist team was consulted for further management. He was started on intravenous Lasix and was admitted for further management. Since he was on Eliquis for atrial fibrillation he could not could not go for thoracentesis immediately. He underwent thoracentesis on July 04 with removal of 2 L fluids. At the same time he was receiving IV antibiotics and IV Lasix for suspected pneumonia as well. Post thoracentesis CT detected presence of lung mass, which was evident on pre-thoracentesis CT scan as well. His shortness of breath though improved after thoracentesis. After consultation with Pulmonology, Dr. Sevilla, it was decided to discharge the patient on oral antibiotics and repeat CT scan in about 2 weeks time. If the lung nodules resolve after the antibiotic, it would mean that they were related to they were related to pneumonia, but if the lung nodules would remain it could indicate presence of malignancy and the plan was to get him an outpatient CT-guided lung biopsy. More than 30 minutes spent discharging the patient. Plan of care discussed with him and his . All of their questions have been answered. cc: Jorge Khan MD MTDD
== END 2019-07-05 13:02 | disposition home or self-care (01) | DRG 186 ==
LOC: ED 10:03 → SUATTDRO 12:55 → 3N 12:55
PROVIDERS: ATTEND Internal Medicine

== ENCOUNTER 2019-08-19 10:54 | Inpatient (IN) ==
--- NOTE | 2019-08-07 09:38 | EKG Report ---
Test Performed on : 08/07/2019 09:12:36 AM Test Reason : PAT Blood Pressure : / mmHG Vent. Rate : 072 BPM Atrial Rate : 072 BPM P-R Int : 160 ms QRS Dur : 098 ms QT Int : 396 ms P-R-T Axes : 018 066 039 degrees QTc Int : 433 ms Normal sinus rhythm. Septal infarct , age undetermined Abnormal ECG When compared with ECG of 01-JUL-2019 10:24, Questionable change in QRS axis Confirmed by Balbir SLATER, Cornelio Bryan ([id number]) on 08/08/2019 7:41:47 AM
[2019-08-07 10:00] LABS: HEMATOCRIT 44.6 % (42.0-52.0); HEMOGLOBIN 14.4 g/dL (14.0-18.0); MCH 28.6 PG (27-31); MCHC 32.3 g/dL (33-37); MCV 88.5 FL (81-99); MPV 9.5 FL (7.4-10.4); RBC 5.04 XMIL (4.7-6.1); RDW 13.5 % (11.5-14.5); WBC 8.08 X1000 (4.8-10.8)
[2019-08-07 10:37] LABS: AGAP 10; BUN 16 mg/dL (8-22); CALCIUM 7.9 mg/dL (8.8-10.2); CHLORIDE 102 mmol/L (98-107); COSMO 277; ESTIMATED GFR > 60; GLUCOSE 95 mg/dL (70-104); POTASSIUM 3.5 mmol/L (3.5-5.1); SODIUM 138 mmol/L (136-145); TCO2 26 mmol/L (25-35)
[2019-08-19] MEDS ORDERED: KEFZOL 1 GM/D5W 1 GM/50 ML IVPB ONE (11:09)
[2019-08-19] MEDS ORDERED: LR 1,000 ML ONE ×3 (11:09→15:24)
[2019-08-19] MEDS ORDERED: VERSED ONE (11:39)
[2019-08-19] MEDS ORDERED: DIPRIVAN 1% ONE (11:39)
[2019-08-19] MEDS ORDERED: DILAUDID ONE (11:40)
[2019-08-19] MEDS ORDERED: XYLOCAINE 1%/EPI 1:100,000 ONE (11:59)
[2019-08-19 13:35] LABS: URINE SOURCE CATH
[2019-08-19 13:39] LABS: BILIRUBIN URINE NEGATIVE (NEGATIVE); BLOOD URINE NEGATIVE (NEGATIVE); COLOR YELLOW; GLUCOSE URINE NEGATIVE (NEGATIVE); KETONE URINE NEGATIVE (NEGATIVE); LEUKOCYTES URINE NEGATIVE (NEGATIVE); NITRITE URINE NEGATIVE (NEGATIVE); PROTEIN URINE NEGATIVE (NEGATIVE); SP GRAVITY URINE 1.011; TURBIDITY URINE CLEAR (CLEAR); UR EPITHELIAL CELLS <10 /HPF (<10); URINE BACTERIA NEGATIVE /HPF; URINE RBC <10 /HPF (<10); URINE WBC <10 /HPF (<10); UROBILINOGEN URINE NORMAL (NORMAL)
[2019-08-19] MEDS ORDERED: QUELICIN (DOSE) ONE (14:58)
[2019-08-19] MEDS ORDERED: PITRESSIN ONE (14:58)
[2019-08-19] MEDS ORDERED: STERILE WATER INJ. ONE (14:58)
[2019-08-19] MEDS ORDERED: NEO-SYNEPHRINE ONE (14:58)
[2019-08-19] MEDS ORDERED: ROBINUL ONE (14:58)
[2019-08-19] MEDS ORDERED: NORCURON ONE (14:58)
[2019-08-19] MEDS ORDERED: ZEMURON ONE (14:58)
[2019-08-19] MEDS ORDERED: ZOFRAN ONE (14:58)
[2019-08-19] MEDS ORDERED: EPHEDRINE ONE (14:58)
[2019-08-19] MEDS ORDERED: XYLOCAINE-MPF 2% ONE (14:58)
[2019-08-19] MEDS ORDERED: NEOSTIGMINE ONE (14:58)
[2019-08-19] MEDS: DILAUDID ONE ×4 (15:22→16:02)
[2019-08-19] MEDS ORDERED: NS 1,000 ML ONE (16:05)
[2019-08-19] MEDS ORDERED: ZOFRAN IV PRN (16:05)
--- NOTE | 2019-08-19 16:14 | EKG Report ---
Test Performed on : 08/19/2019 3:26:16 PM Test Reason : Hypotension in OR Blood Pressure : / mmHG Vent. Rate : 057 BPM Atrial Rate : 057 BPM P-R Int : 160 ms QRS Dur : 110 ms QT Int : 462 ms P-R-T Axes : -08 020 035 degrees QTc Int : 449 ms Sinus bradycardia. Nonspecific T wave abnormality Abnormal ECG When compared with ECG of 07-AUG-2019 09:12, Criteria for Septal infarct are no longer present Unconfirmed Result
--- NOTE | 2019-08-19 16:17 | OPERATIVE NOTE ---
PROCEDURE DATE: 08/19/2019 PROCEDURES PERFORMED: 1. Right thoracoscopy with pleural biopsy, diaphragm biopsy and right lower lobe biopsy. 2. Repair of hole in the diaphragm. SURGEON: Fahad Gonzalez MD. INFORMATION SERVICES TECH: JOSÉ MIGUEL Batista. PREOPERATIVE DIAGNOSIS: Recurrent right pleural effusion with right lower lung mass. POSTOPERATIVE DIAGNOSIS: Recurrent right pleural effusion with right lower lung mass with multiple pleural plaques and a possible right lower lobe malignancy. DESCRIPTION OF PROCEDURE: Satisfactory general endotracheal anesthesia was achieved using a double lumen endotracheal tube. The patient was placed in the decubitus position the right side up, and once again the position was checked ans the double-lumen tube was appropriately positioned. We anesthetized the skin in the right anterior chest with 1% lidocaine with epinephrine, incised the skin and carried our incision into the pleural space. We then aspirated about 2000 mL of serous fluid. We then introduced a 5 Thoracoport, and upon introducing it we noticed that the pleural surface was covered in white plaques, and the diaphragm was as well. We added another Thoracoport in the anterior axillary line. We then obtained some parietal pleural biopsies in the posterior parietal pleura, and then there was also some diaphragmatic pleural biopsies. I did make a hole in the diaphragm from the biopsy, and so we added another Thoracoport and used 0 silk endo-stitch to close the hole in the diaphragm with 2 endo-stitches. The pathology came back as pleural plaque, but no evidence of malignancy. Very minimal cellularity. So, we then rolled the lung anteriorly and felt a hard knot in the lower lobe, and we did some right lower lobe biopsies and sent them for frozen section. They came back highly inflammatory with atypical cells and a malignancy could not be ruled out. The patient also had some hypotension and so, in view of the patient's clinical status, the recurrent pleural effusion, the multiple pleural plaques and the mass in the lower lobe, it was felt that the best thing to do would simply be to put a chest tube in and drain the pleural space and await for all of our permanent sections. I considered a PleurX catheter at this point, but I felt it best to wait until we get the permanents back and be certain there was no air leak before placing a PleurX catheter. We placed a 32 chest tube secured to the skin with 0 silk. We had the nurse production crew supervisor inflate the right lung. We then removed the other Thoracoports and placed 3-0 Polysorb in the subcutaneous tissue and closed the skin with a 4-0 Polysorb subcuticular stitch. Sterile dressings applied. A 32 chest tube was attached to Pleur-Evac. He was sent to the recovery room in stable condition. cc: MD Juancarlos Garza MD
--- NOTE | 2019-08-19 16:31 | Diag Imaging Result Doc PS360 ---
EXAM: CHEST-PORTABLE INDICATION: thoracoscopy TECHNIQUE: One view COMPARISON: 07/23/2019 FINDINGS: A right chest tube is in place. The tip projects over the right upper lung zone. There appear to be trace pleural gas at the right lung base. There is a focal dense opacity involving the right lower lung zone suggesting pneumonia and/or atelectasis. There is mild subsegmental atelectasis at the left lung base. The heart appears somewhat prominent but stable. IMPRESSION: 1.Interval placement of right chest tube as described with a very small right basilar pneumothorax. 2.There is focal opacity in the right lower lung zone suggesting pneumonia and/or atelectasis. 3.Mild subsegmental atelectasis at the left lung base. Electronically signed by Rishabh Antunez 08/19/2019 4:29 PM
[2019-08-19] MEDS: NS 1,000 ML IV SCH (17:00)
[2019-08-19] MEDS ORDERED: NEO-SYNEPHRINE 50 MG in NS 250 ML IV SCH (17:00)
[2019-08-19] MEDS: DILAUDID IV PRN ×2 (18:49→23:20)
[2019-08-19] MEDS: CARDIZEM CD PO SCH (20:18)
[2019-08-19] MEDS: MOBIC PO SCH (20:19)
[2019-08-19] MEDS: TAMBOCOR PO SCH (20:19)
[2019-08-19] MEDS: KEFZOL 1 GM/D5W 1 GM/50 ML IVPB IV SCH (20:24)
[2019-08-19] MEDS: PERIDEX MT SCH (20:28)
[2019-08-19] MEDS: ADDERALL PO SCH (20:49)
[2019-08-20] MEDS: DILAUDID IV PRN ×6 (01:33→21:26)
[2019-08-20] MEDS: KEFZOL 1 GM/D5W 1 GM/50 ML IVPB IV SCH ×3 (03:14→19:47)
[2019-08-20] MEDS: NS 1,000 ML IV SCH ×2 (06:00→20:00)
[2019-08-20] MEDS: PROTONIX PO SCH (06:00)
[2019-08-20 06:21] LABS: BASO# 0.02 X1000 (0.0-0.2); BASO% 0.2 % (0.0-0.8); EOS# 0.02 X1000 (0.0-0.7); EOS% 0.2 % (0.0-10.0); HEMATOCRIT 40.4 % (42.0-52.0); HEMOGLOBIN 13.2 g/dL (14.0-18.0); LYMPH# 1.08 X1000 (1.2-3.4); LYMPH% 9.3 % (20.5-51.1); MCH 29.2 PG (27-31); MCHC 32.7 g/dL (33-37); MCV 89.4 FL (81-99); MONO% 9.5 % (1.7-9.3); MPV 9.9 FL (7.4-10.4); NEUT# 9.38 X1000 (1.4-6.5); NEUT% 80.8 % (42.2-75.2); PLT 203 X1000 (130-400); RBC 4.52 XMIL (4.7-6.1); RDW 13.4 % (11.5-14.5)
[2019-08-20 06:40] LABS: AGAP 10; BUN 12 mg/dL (8-22); CALCIUM 8.3 mg/dL (8.8-10.2); CHLORIDE 103 mmol/L (98-107); COSMO 282; CREATININE 0.8 mg/dL (0.7-1.2); ESTIMATED GFR > 60; GLUCOSE 110 mg/dL (70-104); SODIUM 141 mmol/L (136-145); TCO2 28 mmol/L (25-35)
[2019-08-20] MEDS: TAMBOCOR PO SCH ×2 (08:03→19:59)
[2019-08-20] MEDS: CARDIZEM CD PO SCH ×2 (08:03→19:59)
[2019-08-20] MEDS: PERIDEX MT SCH ×2 (08:03→19:59)
[2019-08-20] MEDS: HYDROCHLOROTHIAZIDE PO SCH (08:04)
[2019-08-20] MEDS: MOBIC PO SCH ×2 (08:06→19:59)
[2019-08-20] MEDS: FLOMAX PO SCH (08:07)
[2019-08-20] MEDS: ADDERALL PO SCH ×2 (08:07→20:34)
--- NOTE | 2019-08-20 08:15 | GENERAL SURGERY PROGRESS NOTE ---
DATE: 08/20/2019 SUBJECTIVE: He is awake and alert. Doing generally well. OBJECTIVE: Heart rate is 77, blood pressure 131/70. He has bilateral breath sounds. He still has a small air leak. He is awake alert and oriented. ASSESSMENT: His white count 50644, hemoglobin 13.2. Chemistry is fine. PLAN: The plan will be to cut his IV rate to KVO. We will advance his diet and get his arterial line out and we will see about transferring him out later today. cc: Fahad Gonzalez MD
--- NOTE | 2019-08-20 11:10 | EKG Report ---
Test Performed on : 08/20/2019 11:05:47 AM Test Reason : hypotension, chest pain Blood Pressure : / mmHG Vent. Rate : 073 BPM Atrial Rate : 073 BPM P-R Int : 154 ms QRS Dur : 106 ms QT Int : 406 ms P-R-T Axes : -07 004 052 degrees QTc Int : 447 ms Normal sinus rhythm. Nonspecific T wave abnormality Abnormal ECG When compared with ECG of 19-AUG-2019 15:26, No significant change was found Unconfirmed Result
--- NOTE | 2019-08-20 11:20 | CARDIOLOGY CONSULTATION ---
DATE: 08/20/2019 HISTORY OF PRESENT ILLNESS: Patient underwent surgery yesterday for recurrent right pleural effusion and right lower lobe mass. The patient underwent thoracoscopy with pleural biopsy and repair of a hole in the diaphragm, has a chest tube in place. The patient was transiently hypotensive. Currently he is in sinus rhythm. Complains of right-sided chest pain at the site of surgery and tube placement. The patient has a history of paroxysmal atrial fibrillation and anticoagulation therapy which has been held prior to his surgery. There is no history of any recent cardiac history. Prior to his surgery, he had been doing well. This was from a cardiac standpoint. REVIEW OF SYSTEMS: A 14-point review of systems was done. GI System: There is no history of nausea. There is no vomiting or diarrhea. Central nervous system: No focal weakness to suggest a CVA or TIA. Genitourinary: There is no dysuria or hematuria. PAST MEDICAL HISTORY: 1. Paroxysmal atrial fibrillation. 2. Anticoagulation therapy. 3. Pulmonary hypertension. 4. Hypertension. HOME MEDICATIONS: Include: 1. Eliquis 5 mg b.i.d. 2. Meloxicam. 3. Tamsulosin. 4. Cardizem 120 mg p.o. b.i.d. 5. Hydrochlorothiazide 25. 6. Protonix 40. 7. Flecainide 50 mg p.o. b.i.d. ALLERGIES: He is not known to be allergic to any medication. SOCIAL HISTORY: The patient is a former smoker. Does not smoke now. PHYSICAL EXAMINATION: Vital signs: Blood pressure 120/80. Cardiovascular: First and second heart sounds were heard. There was no S3 gallop. Respiratory System: Moving good air bilaterally. He has a chest tube on the right side. Abdomen: Soft, nontender. Central nervous system: Alert, was moving extremities. Extremities: Examination of extremities revealed no pedal edema. HEENT: Atraumatic, normocephalic. Pupils were reacting to light. LABORATORY EXAMINATION: Sodium 141, potassium 4.0, BUN 12, creatinine 0.8. WBC 11.6, hemoglobin 13.2, hematocrit 40, platelet count of 203,000. ASSESSMENT AND PLAN: 1. Mr. Kofi Rogers is a 74-year-old gentleman with history of paroxysmal atrial fibrillation on anticoagulation therapy, hypertension, underwent thoracoscopy with pleural biopsy and repair of right diaphragm, for suspected malignancy. The patient had transient hypotension in the postoperative area. Currently, he is normotensive and in normal sinus rhythm. From a cardiac standpoint, recommend his home medications of Cardizem and flecainide restarted. 2. As far as anticoagulation therapy, recent surgery, that has been on hold. 3. I have not made any other changes to his medications. Thank you for the consult. We will follow hospital course. cc: MD Fahad Rhodes MD
[2019-08-20] MEDS: NORCO-10 PO PRN (15:03)
[2019-08-21] MEDS: DILAUDID IV PRN ×3 (01:25→11:59)
[2019-08-21] MEDS: KEFZOL 1 GM/D5W 1 GM/50 ML IVPB IV SCH ×3 (04:10→20:28)
[2019-08-21] MEDS: PROTONIX PO SCH (06:10)
--- NOTE | 2019-08-21 07:08 | Diag Imaging Result Doc PS360 ---
CHEST-PORTABLE - 08/21/2019 INDICATION: post thoracoscopy with biopsy COMPARISON: None FINDINGS: Stable right chest tube. The trace right pneumothorax has resolved. There has been significant decrease in the focal infiltrate in the lateral right lung base. Stable cardiomegaly and pulmonary vascular congestion. Stable ill-defined bilateral interstitial infiltrates compatible with pulmonary edema. There is probably a trace left pleural effusion. IMPRESSION: Improvement from prior. No complication. Electronically signed by Brant Vallejo 08/21/2019 7:05 AM
[2019-08-21] MEDS: TAMBOCOR PO SCH ×2 (08:13→20:29)
[2019-08-21] MEDS: HYDROCHLOROTHIAZIDE PO SCH (08:13)
[2019-08-21] MEDS: PERIDEX MT SCH ×2 (08:13→20:29)
[2019-08-21] MEDS: CARDIZEM CD PO SCH ×2 (08:13→20:29)
[2019-08-21] MEDS: MOBIC PO SCH ×2 (08:13→20:29)
[2019-08-21] MEDS: ADDERALL PO SCH ×2 (09:10→20:36)
[2019-08-21] MEDS ORDERED: MILK OF MAGNESIA PO ONE (09:21)
[2019-08-21] MEDS: ELIQUIS PO SCH ×2 (09:35→20:29)
--- NOTE | 2019-08-21 10:19 | GENERAL SURGERY PROGRESS NOTE ---
DATE: 08/21/2019 His heart rate is 74, respiratory rate is 20 to 26, blood pressure 135/62. He has good breath sounds bilaterally. I do not see an air leak this morning. His chest x-ray shows clearing of the right basilar density. Intake 2211, output 2505. Chest tube had 630 mL of serous fluid. Plan today is to remove his Franco, transfer him out to a regular room. Will get him up in a chair. cc: Fahad Gonzalez MD
[2019-08-21] MEDS: NORCO-10 PO PRN (18:01)
--- NOTE | 2019-08-21 20:11 | Diag Imaging Result Doc PS360 ---
EXAM: CHEST-PORTABLE INDICATION: possible air leak TECHNIQUE: One view COMPARISON: 08/21/2019 FINDINGS: The right chest tube is in stable position. There is a trace right basilar pneumothorax. However, it was probably present on the previous study as well. There is persistent basilar atelectasis and/or infiltrate in both lung bases. It is essentially stable given differences in inspiration. No new consolidation is appreciated. Cardiac silhouette is stable. IMPRESSION: Essentially stable chest. Electronically signed by Rishabh Antunez 08/21/2019 8:08 PM
[2019-08-22] MEDS: KEFZOL 1 GM/D5W 1 GM/50 ML IVPB IV SCH (03:44)
[2019-08-22] MEDS: DILAUDID IV PRN (03:45)
[2019-08-22] MEDS: PROTONIX PO SCH (06:40)
[2019-08-22] MEDS: ADDERALL PO SCH ×2 (09:55→10:12)
[2019-08-22] MEDS: MOBIC PO SCH ×2 (09:55→20:03)
[2019-08-22] MEDS: TAMBOCOR PO SCH ×2 (09:55→20:03)
[2019-08-22] MEDS: HYDROCHLOROTHIAZIDE PO SCH (09:55)
[2019-08-22] MEDS: CARDIZEM CD PO SCH ×2 (09:55→20:03)
[2019-08-22] MEDS: ELIQUIS PO SCH ×2 (09:55→20:03)
[2019-08-22] MEDS: PERIDEX MT SCH ×2 (10:11→20:04)
[2019-08-22] MEDS: FLOMAX PO SCH (10:11)
[2019-08-22] MEDS: NORCO-10 PO PRN ×2 (12:19→19:52)
--- NOTE | 2019-08-22 16:20 | GENERAL SURGERY PROGRESS NOTE ---
DATE: 08/22/2019 Mr. Rogers unfortunately has a more prominent air leak today. He continues to put out his chest tube. The cytology and pathology remains pending. Otherwise, he is doing well. cc: Fahad Gonzalez MD
[2019-08-22] MEDS: NS 1,000 ML IV SCH (18:00)
[2019-08-23] MEDS: ADDERALL PO SCH ×3 (00:32→10:01)
[2019-08-23] MEDS: PROTONIX PO SCH (06:49)
--- NOTE | 2019-08-23 07:36 | Diag Imaging Result Doc PS360 ---
EXAM: CHEST-PORTABLE INDICATION: post thoracoscopy TECHNIQUE: One view COMPARISON: 08/21/2019 FINDINGS: The right chest tube is in approximately stable position. The very small right basilar pneumothorax is approximately stable. Bibasilar atelectasis and/or infiltrate, more prominent on the right, is essentially unchanged. No new consolidation is identified. Cardiac silhouette is stable. IMPRESSION: Essentially stable chest. Electronically signed by Rishabh Antunez 08/23/2019 7:34 AM
[2019-08-23] MEDS: CARDIZEM CD PO SCH (09:57)
[2019-08-23] MEDS: ELIQUIS PO SCH (09:57)
[2019-08-23] MEDS: PERIDEX MT SCH (09:58)
[2019-08-23] MEDS: NORCO-10 PO PRN ×2 (09:58→16:29)
[2019-08-23] MEDS: TAMBOCOR PO SCH (09:59)
[2019-08-23] MEDS: MOBIC PO SCH (10:00)
[2019-08-23] MEDS: HYDROCHLOROTHIAZIDE PO SCH (10:00)
[2019-08-23 15:16] VITALS: BP 105/51
--- NOTE | 2019-08-23 21:37 | GENERAL SURGERY PROGRESS NOTE ---
DATE: 08/23/2019 SUBJECTIVE: Mr. Rogers has no air leak this afternoon. We did get his pathology report. 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 I discussed that with him and his . ASSESSMENT AND PLAN: We will remove his chest tube. He will return over the weekend if he has any problems, otherwise he will see me in a week. He certainly will need a PleurX catheter at some point, and he understands that. We will further discuss Oncology referral. cc: Fahad Gonzalez MD
--- NOTE | 2019-09-14 19:52 | DISCHARGE SUMMARY ---
ADMISSION DATE: 08/19/2019 DISCHARGE DATE: 08/23/2019 PRIMARY DISCHARGE DIAGNOSIS: Pleural mesothelioma. This was verified by evaluation and consultation with the [facility]. His daughter was sent to me by Dr. Avendaño because of PET scan showing some light up to the pleura as well as some mass lesions in the right lung as well. So, we needed a biopsy so he was sent to me for thoracoscopy and biopsy and even consideration of a PleurX catheter. He underwent the procedure on 08/19/2019. There was a small hole in the diaphragm that required a stitch from our biopsy of the diaphragmatic pleura. Postoperatively, he did generally well. The non destructive testing supervisor was consulted due to some transient hypotension postop. He does have a history of paroxysmal atrial fibrillation. He continued to improve after the thoracoscopy. On the his Franco was removed. It was felt he could be transferred to a regular room and had gotten up in a chair. On the , he has an air leak and so we had to leave his chest tube. On the , no air leak was seen so we removed his chest tube. We did not put in a PleurX catheter at the time of the surgery because we did not have a final diagnosis plus we had some air leak. By the , however, he was doing well and was felt he could be discharged home. He will return to the office in follow up to receive his final pathology report. cc: Fahad Gonzalez MD
== END 2019-08-23 18:52 | disposition home or self-care (01) | DRG 829 ==
LOC: OR 10:54 → ICU 10:54 → OBSVTOIN 15:57 → 4N 08-21 09:45
PROVIDERS: ADMIT Surgery; ATTEND Surgery